=== PATIENT | male | born 1985 | race Caucasian/White ===

== ENCOUNTER 2017-11-29 17:58 | Emergency (ER) | payer MEDICAID ==
[2017-11-29 18:04] VITALS: BP 132/85; PULSE 83; RESP 18; TEMP 97.6; O2SAT 98
--- NOTE | 2017-11-29 18:46 | C.PDOC ---
History Of Present Illness 32 year old male presents to the ER with a complaint of lower back pain since last night. Patient has a Hx of herniated discs and states the pain feels similar to that, no new symptoms. Denies heavy lifting, recent fall, weakness, numbness, abdominal pain, leg pain, or bladder/bowel incontinence. Patient took 800mg motrin with no significant relief. Time Seen by Provider: 11/29/17 18:21 Chief Complaint (Nursing): Back Pain History Per: Patient History/Exam Limitations: no limitations Onset/Duration Of Symptoms: Days Current Symptoms Are (Timing): Still Present Quality Of Discomfort: Unable To Describe Previous Symptoms: Other (Herniated discs) Associated Symptoms: None Recent travel outside of the [place]: No Past Medical History Reviewed: Historical Data, Nursing Documentation, Vital Signs Vital Signs: Last Vital Signs Temp 97.6 F 11/29/17 18:02 Pulse 83 11/29/17 18:02 Resp 18 11/29/17 18:02 BP 132/85 11/29/17 18:02 Pulse Ox 98 11/29/17 18:02 - Medical History PMH: Back Problems Family History: States: Unknown Family Hx - Social History Hx Tobacco Use: No Hx Alcohol Use: No Hx Substance Use: No - Immunization History Hx Tetanus Toxoid Vaccination: No Hx Influenza Vaccination: No Hx Pneumococcal Vaccination: No Review Of Systems Genitourinary: Negative for: Dysuria, Incontinence, Hematuria Musculoskeletal: Positive for: Back Pain Neurological: Negative for: Weakness, Numbness Physical Exam - Physical Exam Appears: Non-toxic, No Acute Distress Skin: Normal Color, Warm, Dry Head: Atraumatic, Normacephalic Eye(s): bilateral: Normal Inspection, EOMI Nose: Normal Oral Mucosa: Moist Neck: Normal ROM, Supple Chest: Symmetrical Respiratory: No Accessory Muscle Use Gastrointestinal/Abdominal: Normal Exam, Soft, No Tenderness Back: No CVA Tenderness, No Vertebral Tenderness, Paraspinal Tenderness (lower paralumbar) Extremity: Normal ROM (x4) Neurological/Psych: Oriented x3, Normal Speech, Normal Motor, Normal Sensation Gait: Steady ED Course And Treatment O2 Sat by Pulse Oximetry: 98 (Room air) Pulse Ox Interpretation: Normal Progress Note: Flexeril and toradol administered. On reevaluation, patient reports improvement of back pain, he is resting comfortably in no acute distress and able to ambulate with a steady gait. No incontinence. No abdominal pain, no n/v, or change in sensation. Will discharge home with Rx and instructions to follow up with PMD tomorrow. Disposition - Disposition Disposition: HOME/ ROUTINE Disposition Time: 19:23 Condition: STABLE Additional Instructions: Follow up with your primary medical doctor or clinic in 2-5 days for further evaluation. Take medications as prescribed. Return to the emergency department at any time if symptoms persist or worsen. Prescriptions: Cyclobenzaprine [Cyclobenzaprine HCl] 10 mg PO TID #15 tab Naproxen [Naprosyn] 1 tab PO BID PRN #20 tab PRN Reason: Pain Instructions: Low Back Pain (DC) Forms: [employer] (Portuguese) - Clinical Impression Clinical Impression: Low back strain - PA / FINANCIAL SYSTEMS ANALYST / Resident Statement MD/DO has reviewed & agrees with the documentation as recorded. - Scribe Statement The provider has reviewed the documentation as recorded by the Scribmichael Whitehead All medical record entries made by the Scribmichael were at my direction and personally dictated by me. I have reviewed the chart and agree that the record accurately reflects my personal performance of the history, physical exam, medical decision making, and the department course for this patient. I have also personally directed, reviewed, and agree with the discharge instructions and disposition.
== END 2017-11-29 19:54 | disposition home or self-care (01) ==
LOC: C.ER 17:58
DX: S39.012A Strain of muscle, fascia and tendon of lower back, initial encounter (principal); X58.XXXA Exposure to other specified factors, initial encounter; Y92.9 Unspecified place or not applicable
CPT/HCPCS: 96372; 99283; J1885

== ENCOUNTER 2018-06-29 08:57 | Day surgery (SDC) | payer MEDICAID ==
[2018-06-29 09:43] VITALS: BMI 36.0
[2018-06-29 09:52] VITALS: RESP 18
[2018-06-29] MEDS ORDERED: Lidocaine 2% MPF (5 ml) Inj ONE (10:18)
[2018-06-29 11:11] VITALS: BP 118/83; PULSE 83; TEMP 98; O2SAT 100
--- NOTE | 2018-07-26 20:49 | OP ---
PROCEDURE DATE: 06/29/2018 PREOPERATIVE DIAGNOSIS: Right scrotal cyst. POSTOPERATIVE DIAGNOSIS: Right scrotal cyst. PROCEDURE PERFORMED: Excision of right scrotal cyst. SURGEON: Nathalie David MD DESCRIPTION OF PROCEDURE: The patient was placed on the operating room table in the supine position. The area of the groin was draped and prepped in a sterile manner. I used 2% lidocaine for local anesthetic effect about 10 mL in the area of this cyst. I then made an incision over the largest portion of the cyst, and using sharp forceps and clamps, I enucleated the cyst from the right scrotal region. It was approximately perhaps 1 cm x 1.5 cm in size. One cyst was removed and I just cauterized some small active bleeders, and I approximated the skin edge with two interrupted sutures of 4-0 chromic. Once this was done, I placed a dry dressing over the wound site and the patient was taken from the operating room in good condition. Nathalie David MD
== END 2018-06-29 11:26 | disposition home or self-care (01) ==
LOC: C.SDS 08:57
PROVIDERS: ATTEND Urology
DX: L72.9 Follicular cyst of the skin and subcutaneous tissue, unspecified (principal); N50.82 Scrotal pain